=== PATIENT | male | born 1940 | race American Indian/Alaskan Native ===

== ENCOUNTER 2020-12-30 11:42 | Outpatient (CLI) | payer MEDICARE, OTHER ==
[2020-12-30 12:20] LABS: Hematocrit 41.3 % (35.5-45.6); Mean Corpuscular HGB Conc 34 % (32-34); Mean Corpuscular Volume 87 fl (84-94); Platelet Count 174 K/mm3 (140-440); Red Blood Count 4.78 M/mm3 (3.65-5.03); Red Cell Distribution Width 13.7 % (13.2-15.2)
[2020-12-30 12:34] LABS: ABG Base Excess 0.4 mmol/L (-2.0-3.0); ABG HCO3 24.5 mmol/L (20.0-26.0); ABG Methemoglobin 0.4 % (0.0-1.5); ABG Oxygen Saturation 96.2 % (95.0-99.0); ABG PCO2 37.9 mm Hg; ABG PH 7.428 pH Units (7.350-7.450); ABG PO2 81.1 mm Hg (80.0-90.0)
[2020-12-30 13:26] LABS: Alanine Aminotransferase 20 units/L (7-56); Albumin 4.3 g/dL (3.9-5); Blood Urea Nitrogen 8 mg/dL (9-20); Calcium 9.6 mg/dL (8.4-10.2); HDL Cholesterol 77 mg/dL (40-59); Hemolysis Index 102; LDL Cholesterol,Direct 83 mg/dL (50-130)
--- NOTE | 2020-12-30 13:26 | XRay Report ---
CHEST 2 VIEWS INDICATION: Pulmonary fibrosis. COMPARISON: None. FINDINGS: Support devices: None. Heart: Within normal limits. Lungs/Pleura: Mild right-sided pleural thickening at the mid/lower zone with adjacent parenchymal opa city. Left lung clear. No significant pleural effusion. IMPRESSION: Mild right-sided pleural thickening at the mid/lower zone with adjacent parenchymal opac ity. This is favored to be chronic. No prior studies are available for comparison. Signer Name: Tanvir Busby MD Signed: 12/30/2020 1:22 PM Workstation Name: [id number]
[2020-12-30 13:32] LABS: BUN/Creatinine Ratio 11
--- NOTE | 2020-12-30 15:18 | Cat Scan Report ---
CT CHEST WITH CONTRAST INDICATION / CLINICAL INFORMATION: Pulmonary fibrosis. TECHNIQUE: Axial CT images were obtained through the chest after 100 cc Omnipaque [address] scans at this location are performed using CT dose reduction for ALARA by means of automated exposure contr ol. COMPARISON: 2 views of the chest performed today. FINDINGS: HEART: No significant abnormality. CORONARY ARTERY CALCIFICATION: Mild. THORACIC AORTA: Normal in caliber with mild atherosclerosis and no other significant abnormalities. LYMPH NODES: No significant adenopathy. TRACHEA AND BRONCHI:No significant abnormality. LUNGS: Mark is decreased right lung volume is noted with calcified right pleural plaques and chronic appearing parenchymal changes along the right lung base. Moderate emphysema is noted bilaterally. No fibrosis is identified. No suspicious nodule, mass or consolidation. No pneumothorax or pleural effus ion. UPPER ABDOMEN: There are multiple cysts throughout the liver with a fuels sales representative anterior right hep atic lobe cyst on image 108 of series 2 measuring 1.7 cm. Additional low-density solid-appearing lesi ons are present inferiorly along the right hepatic lobe measuring up to 1.5 cm on image 125 of series 2 that are incompletely evaluated. No other significant abnormality. BONES: No acute abnormality. Mild degenerative changes are seen along the spine and shoulders. ADDITIONAL FINDINGS: None. IMPRESSION: 1. Moderate emphysema with chronic appearing changes along the right lung as above without visualizat ion of pulmonary fibrosis. 2. Indeterminate solid appearing right hepatic lobe lesions as above measuring up to 1.[address] abd omen with and without contrast (liver protocol) would be helpful for further characterization. 3. Additional findings as above. Signer Name: Rob Bergeron MD Signed: 12/30/2020 3:14 PM Workstation Name: [id number]
[2020-12-30 17:51] LABS: Platelet Estimate Consistent w Auto; Total Cells Counted 100
[2021-01-01 15:32] LABS: Myeloperoxidase Antibody <1.0 AI (<1.0)
[2021-01-02 01:19] LABS: ANA Screen, IFA Negative (Negative)
== END 2020-12-30 11:43 | disposition home or self-care (01) ==
LOC: LAB 11:42
PROVIDERS: ATTEND Internal Medicine
DX: J43.9 Emphysema, unspecified (principal); E11.9 Type 2 diabetes mellitus without complications; E78.00 Pure hypercholesterolemia, unspecified; I10 Essential (primary) hypertension; K21.9 Gastro-esophageal reflux disease without esophagitis; J84.10 Pulmonary fibrosis, unspecified
CPT/HCPCS: 36415; 71046; 71260; 80053; 80061; 82164; 82803; 84436; 84443; 85007; 85025; 86021; 86038; 86431; Q9967

== ENCOUNTER 2021-01-02 09:33 | Outpatient (CLI) | payer MEDICARE, OTHER ==
--- NOTE | 2021-01-02 11:29 | Fluoroscopy Report ---
UPPER GI INDICATION / CLINICAL INFORMATION: CHRONIC OBSTRUCTION J44.9 TECHNIQUE: Upper GI exam was performed with double contrast barium and air. COMPARISON: CT of the chest dated 12/30/2020 FINDINGS: MOTILITY: There is delayed motility of contrast throughout the esophagus with tertiary contractions MUCOSA: No significant abnormality. MASS: None. STRICTURE: None. HIATAL HERNIA: None. REFLUX: None. STOMACH: No significant abnormality. DUODENUM: No significant abnormality. ADDITIONAL FINDINGS: None. Fluoroscopy Time: 0.7 minutes. Fluoroscopy Images: 13. IMPRESSION: 1. Delayed motility of contrast throughout the esophagus with tertiary contractions. No hiatal hernia . No reflux. Signer Name: Sacha Haro DO Signed: 01/02/2021 11:25 AM Workstation Name: [id number]
== END 2021-01-02 09:34 | disposition home or self-care (01) ==
LOC: FLUORO 09:33
PROVIDERS: ATTEND Internal Medicine
DX: J44.9 Chronic obstructive pulmonary disease, unspecified (principal); I10 Essential (primary) hypertension; E78.00 Pure hypercholesterolemia, unspecified; E11.9 Type 2 diabetes mellitus without complications; K21.9 Gastro-esophageal reflux disease without esophagitis
CPT/HCPCS: 74246